=== PATIENT | male | born 1985 | race Caucasian/White ===

== ENCOUNTER 2025-03-28 10:11 | Outpatient (CLI) | payer OTHER | END 2025-03-28 10:12 | disposition home or self-care (01) | LOC: SCSMRI 10:11 | PROVIDERS: ATTEND Family Medicine Sports Medicine | DX: M47.26 Other spondylosis with radiculopathy, lumbar region (principal); M48.061 Spinal stenosis, lumbar region without neurogenic claudication; M48.07 Spinal stenosis, lumbosacral region | CPT/HCPCS: 72148 ==